=== PATIENT | female | born 1975 | race Caucasian/White ===

== ENCOUNTER 2017-09-08 11:00 | Outpatient (RCR) ==
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
--- NOTE | 2017-08-27 13:37 | RS.OPPTDN ---
Subjective Date of Note: 08/27/17 Visit #: 2 Date of Evaluation: 08/25/17 Payer Source: Insurance Treatment Diagnosis: shld pain, Current Subjective/complaints:: Patient says that heat seems to elevate her neck pain. Reports pain is isolated mostly to the R side of her neck and shoulder blade. She says she feels u/s was helpful at eval. Denies any symptoms to the R UE. *Precautions: n/a Pain Assessment - Pain Description Pain Location: "moderate" "tight" - Treatment Modality: Ultrasound Parameters/Method Applied: continuous @ 1.5 w/cm2 x 12 mins to R UT and 12 mins to the medial border and inferior border of the R scapula Patient Position: Sitting Interventions - Exercise/Activities/Manual Therapy Exercises/Activities: Reviewed home stretches and postural techniques Manual Therapy: DTM and trigger point work to the entire R UT and scapular region. Focus to the R UT and along the medial border x 22 mins HOME EXERCISE PROGRAM: pt given written HEP including cervical ROM, upper trap, levator stretch, scapular retraction and shld shrugs. - Charges Timed Code Treatment Minutes: 46 Total Treatment Time: 46 Procedures billed for this date of service:: us x 2, MT Assessment: Patient presents with moderate pain level and muscle guarding throughout the R UT/scapula. She finds relief with u/s and MT, although she does have spasms and tenderness during moderate palpation with MT. Pain increases with superficial heat she recalls, but expresses improvement following treatment today. Several trigger points are found in this area. No production of pain/tingling/numbness to the R UE with any treatment. Patient was encouraged to perform several postural techniques and exercises to improve symptoms. Patient Education: Body/Joint mechanics, Home Exercise Program Patient demonstrates compliance with HEP?: Yes Short Term Goals Goal #1: pt report decreased pain < 4/10 with activity Goal to be met by: 09/08/17 Goal #2: pt with decreased muscle tightness R upper trap/levator scapula Goal to be met by: 09/08/17 Goal #3: pt independent with initial HEP Goal to be met by: 09/08/17 [facility] Goals Goal #1: Cervical ROM WFL's Goal to be met by: 09/25/17 Goal #2: pt report decreased pain in cervical/scapular region <2/10 Goal to be met by: 09/25/17 Goal #3: pt with RUE strength 4+/5 Goal to be met by: 09/25/17 Goal #4: pt report able to perform normal daily activities with no pain Goal to be met by: 09/25/17 Plan PLAN OF CARE EXPIRES ON:: 09/25/17 ORDER # VISITS AND/OR THROUGH DATE: 09/25/17 PLAN: Patient to continue for modalties, MT, and therex to improve neck pain, mobility, and posture.
--- NOTE | 2017-08-28 13:28 | RS.OPPTDN ---
Subjective Date of Note: 08/28/17 Visit #: 3 Date of Evaluation: 08/25/17 Payer Source: Insurance Treatment Diagnosis: shld pain, Current Subjective/complaints:: Patient says she felt good after her last session, but did forget to take her muscle relaxer at bedtime. She says she is a little more sore this morning as a result. States she is tight pointing at the R inferior border of scapula indicating she has "knots" there. *Precautions: n/a - Treatment Modality: Ultrasound Parameters/Method Applied: continuous @ 1.5 w/cm2 x 12 mins to R UT and 12 mins to the medial and inferior border of scapula Patient Position: Sitting Interventions - Exercise/Activities/Manual Therapy Exercises/Activities: Reviewed home stretches and postural techniques Manual Therapy: DTM and trigger point work to the entire R UT and scapular region. Focus to the R UT and along the medial border x 22 mins HOME EXERCISE PROGRAM: pt given written HEP including cervical ROM, upper trap, levator stretch, scapular retraction and shld shrugs. - Charges Timed Code Treatment Minutes: 46 Total Treatment Time: 46 Procedures billed for this date of service:: us x 2, MT Assessment: Patient with increased muscle guarding to the L UT and throughout the R scapula compared to last session. She has admitted to forgetting muscle relaxer, so this could be partially why she had elevated symptoms. She does also demo several small trigger points along the medial border and inferior border. Patient Education: Home Exercise Program, Education of Plan of Care Patient demonstrates compliance with HEP?: Yes Short Term Goals Goal #1: pt report decreased pain < 4/10 with activity Goal to be met by: 09/08/17 Goal #2: pt with decreased muscle tightness R upper trap/levator scapula Goal to be met by: 09/08/17 Goal #3: pt independent with initial HEP Goal to be met by: 09/08/17 [facility] Goals Goal #1: Cervical ROM WFL's Goal to be met by: 09/25/17 Goal #2: pt report decreased pain in cervical/scapular region <2/10 Goal to be met by: 09/25/17 Goal #3: pt with RUE strength 4+/5 Goal to be met by: 09/25/17 Goal #4: pt report able to perform normal daily activities with no pain Goal to be met by: 09/25/17 Plan PLAN OF CARE EXPIRES ON:: 09/25/17 ORDER # VISITS AND/OR THROUGH DATE: 09/25/17 PLAN: Patient to continue 2-3 times per week for modalities, MT, and therex.
--- NOTE | 2017-09-01 16:19 | RS.OPPTDN ---
Subjective Date of Note: 09/01/17 Visit #: 4 Date of Evaluation: 08/25/17 Payer Source: Insurance Treatment Diagnosis: shld pain, Current Subjective/complaints:: Patient says she feels therapy is helping. She reports less R scapular pain and tightness. She is working on stretches at home and has ordered and received an ice pack similar to our gel packs, which she is using often. *Precautions: n/a Pain Assessment - Pain Description Pain Location: R mid cspine paraspinals and scapula (mostly medial and inferior border) - Treatment Modality: Ultrasound Parameters/Method Applied: continuous @ 1.5 x 12 mins each to the R UT (along the mid cervical paraspinals ) and R inferior and medial border of scapula. Patient Position: Sitting Interventions - Exercise/Activities/Manual Therapy Exercises/Activities: Reviewed home stretches and postural techniques Manual Therapy: DTM and trigger point work to the entire R UT and scapular region. Focus to the R UT and along the medial border x 22 mins HOME EXERCISE PROGRAM: pt given written HEP including cervical ROM, upper trap, levator stretch, scapular retraction and shld shrugs. - Charges Timed Code Treatment Minutes: 46 Total Treatment Time: 46 Procedures billed for this date of service:: us x 2, MT Assessment: Patient admits improved flexibility and pain to the R scapula and UT. She still has difficulty with prolonged neck extension, but is able to perform it intermittently. Patient Education: Education of diagnosis, Home Exercise Program Patient demonstrates compliance with HEP?: Yes Short Term Goals Goal #1: pt report decreased pain < 4/10 with activity Goal to be met by: 09/08/17 Progress towards Goal:: Progressing Goal #2: pt with decreased muscle tightness R upper trap/levator scapula Goal to be met by: 09/08/17 Progress towards Goal:: Progressing Goal #3: pt independent with initial HEP Goal to be met by: 09/08/17 Progress towards Goal:: Progressing Half-Way Goals Goal #1: Cervical ROM WFL's Goal to be met by: 09/25/17 Goal #2: pt report decreased pain in cervical/scapular region <2/10 Goal to be met by: 09/25/17 Goal #3: pt with RUE strength 4+/5 Goal to be met by: 09/25/17 Goal #4: pt report able to perform normal daily activities with no pain Goal to be met by: 09/25/17 Plan PLAN OF CARE EXPIRES ON:: 09/25/17 ORDER # VISITS AND/OR THROUGH DATE: 09/25/17 PLAN: Patient to continue modalities and MT, progressing therex
--- NOTE | 2017-09-03 12:04 | RS.OPPTDN ---
Subjective Date of Note: 09/03/17 Visit #: 5 Date of Evaluation: 08/25/17 Payer Source: Insurance Treatment Diagnosis: shld pain, Current Subjective/complaints:: Patient says she can tell she has less tightness to her neck, but is more tender at the "top of her neck instead of the shoulder blade" today. She points to the R of the C4-C7 area. She says she has had less tenderness to this region and has been using cold pack that she ordered similar to ours. *Precautions: n/a Pain Assessment - Pain Description Pain Location: R C4-C7 paraspinals and tenderness to the R inferior scap and along the lateral border - Treatment Modality: Ultrasound Parameters/Method Applied: continuous @ 1.5 w/cm2 x 12 mins each to the R UT and along the medial/lateral and inferior border Patient Position: Sitting - Heat/Cryotherapy Treatment: Cryotherapy (over the R scap and UT in sitting after MT x 15) Interventions - Exercise/Activities/Manual Therapy Exercises/Activities: Reviewed home stretches and postural techniques Manual Therapy: DTM and trigger point work to the entire R UT and scapular region. Focus to the R UT and along the mid cervical x 22 mins HOME EXERCISE PROGRAM: pt given written HEP including cervical ROM, upper trap, levator stretch, scapular retraction and shld shrugs. - Charges Timed Code Treatment Minutes: 46 Total Treatment Time: 61 Procedures billed for this date of service:: cp, Usx2, MT Assessment: Patient demo decreased tenderness to the R inferior border of the scapula noting some increase in soreness to the the R C4-C7 paraspinals, however , this is greatly eased with cryotherapy and MT. Patient Education: Education of diagnosis, Body/Joint mechanics Patient demonstrates compliance with HEP?: Yes Short Term Goals Goal #1: pt report decreased pain < 4/10 with activity Goal to be met by: 09/08/17 Progress towards Goal:: Progressing Goal #2: pt with decreased muscle tightness R upper trap/levator scapula Goal to be met by: 09/08/17 Progress towards Goal:: Progressing Goal #3: pt independent with initial HEP Goal to be met by: 09/08/17 Progress towards Goal:: Progressing Longterm Goals Goal #1: Cervical ROM WFL's Goal to be met by: 09/25/17 Goal #2: pt report decreased pain in cervical/scapular region <2/10 Goal to be met by: 09/25/17 Goal #3: pt with RUE strength 4+/5 Goal to be met by: 09/25/17 Goal #4: pt report able to perform normal daily activities with no pain Goal to be met by: 09/25/17 Plan PLAN OF CARE EXPIRES ON:: 09/25/17 ORDER # VISITS AND/OR THROUGH DATE: 09/25/17 PLAN: Continue x 1-2 more weeks per order
--- NOTE | 2017-09-08 12:04 | RS.OPPTDN ---
Subjective Date of Note: 09/08/17 Visit #: 6 Date of Evaluation: 08/25/17 Payer Source: Insurance Treatment Diagnosis: shld pain, Current Subjective/complaints:: Patient says the lower portion of her shoulder blade is much better. She says her main problem now is her neck. She says her shoulder motion is fine. States that turning her head to the L is still hard at times. *Precautions: n/a - Treatment Modality: Ultrasound Parameters/Method Applied: continuous @ 1.5 w/cm2 x 12 mins each location. R UT and medial/inferior scapular border. Patient Position: Sitting Interventions - Exercise/Activities/Manual Therapy Exercises/Activities: PROM to the R shoulder in all directions and manual isometrics all dir (IR/ER/FLEX/ABD). Isometrics for cervical retraction, SB L and R. Reviewed home stretches and postural techniques Total minutes of Exercise: 10 Manual Therapy: DTM and trigger point work to the entire R UT and scapular region. Focus to the R UT and along the mid cervical x 22 mins HOME EXERCISE PROGRAM: pt given written HEP including cervical ROM, upper trap, levator stretch, scapular retraction and shld shrugs. - Charges Timed Code Treatment Minutes: 72 Total Treatment Time: 72 Procedures billed for this date of service:: usx2, MT, EX Assessment: Patient demo R Active shoulder ROM WNL. All cspine ROM WNL with exception of L rotation to WFL. Decreased muscle guarding and pain to the R inferior scap and now mainly isolated to the R UT. Patient Education: Body/Joint mechanics, Home Exercise Program Patient demonstrates compliance with HEP?: Yes Short Term Goals Goal #1: pt report decreased pain < 4/10 with activity Goal to be met by: 09/08/17 Progress towards Goal:: Progressing Goal #2: pt with decreased muscle tightness R upper trap/levator scapula Goal to be met by: 09/08/17 Progress towards Goal:: Progressing Goal #3: pt independent with initial HEP Goal to be met by: 09/08/17 Progress towards Goal:: Progressing [facility] Goals Goal #1: Cervical ROM WFL's Goal to be met by: 09/25/17 Progress towards goal: Progressing Goal #2: pt report decreased pain in cervical/scapular region <2/10 Goal to be met by: 09/25/17 Progress towards goal: Progressing Goal #3: pt with RUE strength 4+/5 Goal to be met by: 09/25/17 Progress towards goal: Progressing Goal #4: pt report able to perform normal daily activities with no pain Goal to be met by: 09/25/17 Progress towards goal: Progressing Plan PLAN OF CARE EXPIRES ON:: 09/25/17 ORDER # VISITS AND/OR THROUGH DATE: 09/25/17 PLAN: Continue and progress therex to the R UE for improved strength according to goals x 2 more weeks.
== END 2017-09-08 23:59 ==
PROVIDERS: ATTEND Family Medicine
DX: M25.511 Pain in right shoulder (principal); G89.29 Other chronic pain; M54.2 Cervicalgia; M62.89 Other specified disorders of muscle; M62.81 Muscle weakness (generalized)

== ENCOUNTER 2017-09-24 15:30 | Outpatient (RCR) ==
--- NOTE | 2017-09-10 15:06 | RS.OPPTDN ---
Subjective Date of Note: 09/10/17 Visit #: 7 Date of Evaluation: 08/25/17 Payer Source: Insurance Treatment Diagnosis: shld pain, Current Subjective/complaints:: Patient says she has continued improvement with decreased muscle guarding and improved shoulder motion. *Precautions: n/a - Treatment Modality: Ultrasound Parameters/Method Applied: continuous @ 1.6 w/cm2 x 12 mins each R UT and subscapular region Patient Position: Sitting Interventions - Exercise/Activities/Manual Therapy Exercises/Activities: PROM to the R shoulder in all directions and manual isometrics all dir (IR/ER/FLEX/ABD). Isometrics for cervical retraction, SB L and R. Reviewed home stretches and postural techniques Manual Therapy: DTM and trigger point work to the entire R UT and scapular region. Focus to the R UT and along the mid cervical x 22 mins Total minutes of Manual Therapy: 22 HOME EXERCISE PROGRAM: pt given written HEP including cervical ROM, upper trap, levator stretch, scapular retraction and shld shrugs. - Charges Timed Code Treatment Minutes: 46 Total Treatment Time: 46 Procedures billed for this date of service:: u/s x 2, MT Patient Education: Body/Joint mechanics, Education of Plan of Care Patient demonstrates compliance with HEP?: Yes Short Term Goals Goal #1: pt report decreased pain < 4/10 with activity Goal to be met by: 09/08/17 Progress towards Goal:: Met Goal #2: pt with decreased muscle tightness R upper trap/levator scapula Goal to be met by: 09/08/17 Progress towards Goal:: Met Goal #3: pt independent with initial HEP Goal to be met by: 09/08/17 Progress towards Goal:: Met E/M Engineer Goals Goal #1: Cervical ROM WFL's Goal to be met by: 09/25/17 Progress towards goal: Progressing Goal #2: pt report decreased pain in cervical/scapular region <2/10 Goal to be met by: 09/25/17 Progress towards goal: Progressing Goal #3: pt with RUE strength 4+/5 Goal to be met by: 09/25/17 Progress towards goal: Progressing Goal #4: pt report able to perform normal daily activities with no pain Goal to be met by: 09/25/17 Progress towards goal: Progressing Plan PLAN OF CARE EXPIRES ON:: 08/17/18 ORDER # VISITS AND/OR THROUGH DATE: 09/25/17 PLAN: Patient to continue x 1 more session. Patient says her MD verbalized her to continue therapy since it has been effective. Will obtain order for x 2 more weeks to focus on scapular and R shoulder strength as muscle guarding has improved.
--- NOTE | 2017-09-14 14:41 | RS.OPPTDN ---
Subjective Date of Note: 09/14/17 Visit #: 8 Date of Evaluation: 08/25/17 Payer Source: Insurance Treatment Diagnosis: shld pain, Current Subjective/complaints:: Patient says her area of pain is significantly less now. She says she has pain and tightness that is milder at the R UT. Patient reports decreased R shoulder pain and improved ROM. States she is performing more housework with less difficulty, but is also cautious about more difficult yard working tasks. *Precautions: n/a Pain Assessment - Pain Description Pain Location: milder Pain Description: Tightness - Treatment Modality: Ultrasound Parameters/Method Applied: continuous @ 1.6 w/cm2 x 12 mins locally at the R UT (midline and running distally) Patient Position: Sitting Interventions - Exercise/Activities/Manual Therapy Exercises/Activities: PROM to the R shoulder in all directions and manual isometrics all dir (IR/ER/FLEX/ABD). Isometrics for cervical retraction, SB L and R. 2# wand for bilateral shoulder flexion to shoulder height x 10, scap retraction with red tband x 10. Reviewed home stretches and postural techniques Total minutes of Exercise: 12 Manual Therapy: DTM and trigger point work . Focus to a small area at the mid R UT and along the mid cervical x 16 mins HOME EXERCISE PROGRAM: pt given written HEP including cervical ROM, upper trap, levator stretch, scapular retraction and shld shrugs. - Objective Findings Observations,measurements,etc.: Patient completes UE Functional Index scorin/80 or 8% impairment (EVAL: 68/80 or 15% impairment) - Charges Timed Code Treatment Minutes: 40 Total Treatment Time: 40 Procedures billed for this date of service:: u/s, MT, EX Assessment: Patient demo 4+/5 MMT grossly throughout the R UE, however, some functional tasks remain difficult due to moderate muscle guarding and trigger points located into the mid R UT region. These trigger points have reduced in size and tone in general has significantly localized to a much smaller area. She may benefit from continuing her last 4 sessions per order to focus on the R UE. Patient Education: Body/Joint mechanics, Home Exercise Program, Activity Modification Short Term Goals Goal #1: pt report decreased pain < 4/10 with activity Goal to be met by: 09/08/17 Progress towards Goal:: Met Goal #2: pt with decreased muscle tightness R upper trap/levator scapula Goal to be met by: 09/08/17 Progress towards Goal:: Met Goal #3: pt independent with initial HEP Goal to be met by: 09/08/17 Progress towards Goal:: Met Detention Goals Goal #1: Cervical ROM WFL's Goal to be met by: 09/25/17 Progress towards goal: Progressing Goal #2: pt report decreased pain in cervical/scapular region <2/10 Goal to be met by: 09/25/17 Progress towards goal: Progressing Goal #3: pt with RUE strength 4+/5 Goal to be met by: 09/25/17 Progress towards goal: Progressing Goal #4: pt report able to perform normal daily activities with no pain Goal to be met by: 09/25/17 Progress towards goal: Progressing Plan PLAN OF CARE EXPIRES ON:: 09/25/17 ORDER # VISITS AND/OR THROUGH DATE: 09/25/17 PLAN: Patient to continue for MT/EX to focus on the R UE
--- NOTE | 2017-09-17 16:34 | RS.OPPTDN ---
Subjective Date of Note: 09/17/17 Visit #: 9 Date of Evaluation: 08/25/17 Payer Source: Insurance Treatment Diagnosis: shld pain, Current Subjective/complaints:: Patient says her shoulder pain and tightness seems to be improving, but can tell that she needs to work on her strength. She says she has intermittent popping in the R shoulder and does have pain relief once it pops. *Precautions: n/a Pain Assessment - Pain Description Pain Location: R shoulder and tight at the R side of her neck - Treatment Modality: Ultrasound Parameters/Method Applied: continuous @ 1.5 w/cm2 x 10 mins to the R shoulder joint Patient Position: Sitting Interventions - Exercise/Activities/Manual Therapy Exercises/Activities: PROM to the R shoulder in all directions and manual isometrics all dir (IR/ER/FLEX/ABD) in supine 2x5. 1# for punches, biceps curls and R shoulder flexion x 15. Isometrics for cervical retraction, SB L and R. Increased to 3# wand for bilateral shoulder flexion to ~150 degrees and chest presses 2 x 10, Horizontal abd bilaterally with green tband x 10, bilateral shoulder ER with green tband x 10, scap retraction using wand green tband x 10. Total minutes of Exercise: 25 Manual Therapy: DTM and trigger point work . Focus to a small area at the mid R UT and along the mid cervical x 16 mins HOME EXERCISE PROGRAM: pt given written HEP including cervical ROM, upper trap, levator stretch, scapular retraction and shld shrugs. - Charges Timed Code Treatment Minutes: 35 Total Treatment Time: 50 Procedures billed for this date of service:: u/s, ex2 Assessment: Patient demo PROM WNL, AROM, WFL with limitations only with flex/ abd. She demo intermittent popping throughout the R shoulder joint with all motions. 5/5 strength with all motions except flexion 4+/5, but weak with scapular motions and against gravity with arms above shoulder height. She will progress with advancing therex to strengthen the shoulder x 3 more visits per order. D/c then with progressive tbands for home. Patient Education: Home Exercise Program, Education of Plan of Care Patient demonstrates compliance with HEP?: Yes Short Term Goals Goal #1: pt report decreased pain < 4/10 with activity Goal to be met by: 09/08/17 Progress towards Goal:: Met Goal #2: pt with decreased muscle tightness R upper trap/levator scapula Goal to be met by: 09/08/17 Progress towards Goal:: Met Goal #3: pt independent with initial HEP Goal to be met by: 09/08/17 Progress towards Goal:: Met Usp Goals Goal #1: Cervical ROM WFL's Goal to be met by: 09/25/17 Progress towards goal: Partially Met Goal #2: pt report decreased pain in cervical/scapular region <2/10 Goal to be met by: 09/25/17 Progress towards goal: Progressing Goal #3: pt with RUE strength 4+/5 Goal to be met by: 09/25/17 Progress towards goal: Progressing Goal #4: pt report able to perform normal daily activities with no pain Goal to be met by: 09/25/17 Progress towards goal: Progressing Plan PLAN OF CARE EXPIRES ON:: 09/25/17 ORDER # VISITS AND/OR THROUGH DATE: 09/25/17 PLAN: Continue x 3 more sessions, then plan for D/c.
--- NOTE | 2017-09-22 16:41 | RS.OPPTDN ---
Subjective Date of Note: 09/21/17 Visit #: 10 Date of Evaluation: 08/25/17 Payer Source: Insurance Treatment Diagnosis: shld pain, Current Subjective/complaints:: Patient says she was sitting in a 2 hour meeting today and had the R arm positioned where she was propped up for an extended amount of town and is more sore and fatigued in the R shoulder. She c/ o pain that extends up to the R UT and base of the neck. *Precautions: n/a Pain Assessment - Pain Description Pain Location: elevated and tight to the R shoulder up to the R UT/base of neck - Treatment Modality: Ultrasound Parameters/Method Applied: continuous @ 1.5 w/cm2 x 10 mins to the R shoulder and R UT Patient Position: Sitting Interventions - Exercise/Activities/Manual Therapy Exercises/Activities: PROM to the R shoulder in all directions and manual isometrics all dir (IR/ER/FLEX/ABD) in supine 2x5. 2# wand for bilateral shoulder flexion and chest presses x 10 supine. 1# for punches, biceps curls and R shoulder flexion x 15. Green tband for scap retraction in sitting x 10, 1# wand for bilateral shoulder flexion in sitting x 10. Total minutes of Exercise: 28 Manual Therapy: na HOME EXERCISE PROGRAM: pt given written HEP including cervical ROM, upper trap, levator stretch, scapular retraction and shld shrugs. - Objective Findings Observations,measurements,etc.: 72/80 for UE Functional Index or 10% impairment - Charges Timed Code Treatment Minutes: 38 Total Treatment Time: 38 Procedures billed for this date of service:: u/s, Assessment: Patient with elevated pain today due to prolonged positioning of the R shoulder. As a result, she had pain and muscle tightness that extended to the R UT and base of skull. With u/s, this decreased, but we were a little more conservative with exercise. Patient had 4 point improvement for UE Functional Index today showing 10% impairment versus 15% at [facility]. 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 Then plan to D/c.
--- NOTE | 2017-09-24 16:40 | RS.OPPTDN ---
Subjective Date of Note: 09/24/17 Visit #: 11 Date of Evaluation: 08/25/17 Payer Source: Insurance Treatment Diagnosis: shld pain, Current Subjective/complaints:: Patient says her shoulder is feeling much better. Reports she only has mild soreness at the R side of her neck (pointing to mid-section of the RUT). *Precautions: n/a - Treatment Modality: Ultrasound Parameters/Method Applied: continuous @ 1.6 w/cm2 x 12 mins to the R shoulder and R UT along the mid belly Patient Position: Sitting Interventions - Exercise/Activities/Manual Therapy Exercises/Activities: Progressive therex in sittin# wand for bilateral shoulder flexion x 15, Green tband for scap retraction, R shoulder extension, x 15. 1# dumbell for R shoulder flexion, abd, and horizontal add diagonal x 10. 2# dumbell for biceps, triceps, and punches x 10. Total minutes of Exercise: 25 Manual Therapy: na HOME EXERCISE PROGRAM: pt given written HEP including cervical ROM, upper trap, levator stretch, scapular retraction and shld shrugs. - Charges Timed Code Treatment Minutes: 37 Total Treatment Time: 37 Procedures billed for this date of service:: u/s, ex2 Assessment: Patient able to progress with strengthening exercises demo improved AROM to the R shoulder to WNL and improved R sided neck and scapular pain. Pain isolated now to the R UT at the muscle belly. She is able to return to performing all ADLs with minimal intermittent fatigue/soreness. She is compliant with all HEP. 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 Goal #1: Cervical ROM WFL's Goal to be met by: 09/25/17 Progress towards goal: Partially Met Goal #2: pt report decreased pain in cervical/scapular region <2/10 Goal to be met by: 09/25/17 Progress towards goal: Met Goal #3: pt with RUE strength 4+/5 Goal to be met by: 09/25/17 Progress towards goal: Met Goal #4: pt report able to perform normal daily activities with no pain Goal to be met by: 09/25/17 Progress towards goal: Partially Met (significantly less pain, reduced to tolerable level at this point.) Plan PLAN OF CARE EXPIRES ON:: 09/25/17 ORDER # VISITS AND/OR THROUGH DATE: 09/25/17 PLAN: Plan to d/c
== END 2017-10-09 23:59 ==
PROVIDERS: ATTEND Family Medicine
DX: M25.511 Pain in right shoulder (principal); M54.2 Cervicalgia; M62.89 Other specified disorders of muscle; M62.81 Muscle weakness (generalized)

== ENCOUNTER 2018-03-11 15:30 | Outpatient (RCR) ==
--- NOTE | 2018-02-26 09:14 | RS.OPPTEV2 ---
Date of Note: 02/25/18 Visit #: 1 Number of visits approved by Insurance: pending Date of Evaluation: 02/25/18 Payer Source: Insurance Surgery Performed?: No Treatment Diagnosis: L foot pain, plantar fasciitis, heel spur History of Condition/Mechanism of Injury:: pt reports pain began 10/21/17 and was later seen by cone operator and placed in walking boot for 6 weeks. She also received an injection. Prior Level of Function.....Patient was independent with: ADL's, Self Care, Work /Vocation, Caregiving, Ambulation/Mobility, Community Integration/Access Functional Limitations: Standing, Ambulation, Community Access/Integration Current Subjective/complaints:: pt reports she got new inserts that Dr. Almaguer recommended and wore them all day yesterday. pt somewhat sore today. pt showed PT her xray showing bone spur on L heel. Treatment Side (optional): Left *Precautions: n/a Medical History Medical History: Hypertension, Diabetes, Arthritis Medical History Comments:: DDD Surgical History: Cholecystectomy, Tonsillectomy Smoking Status: Never smoker Hx Home Medications: lantus, humalog, zestril, prozac, lipitor, HTCZ, anglaza glucophage, orglyza, orthocept, novalog Patient's Goals: decreased L heel pain Pain Assessment - Pain Description Pain Location: L heel Pain Description: Aching Current Pain Intensity: 2/10 Functional Outcome Measure LE Functional Scale: 47 - G Codes & Severity Modifier G Codes & Modifier: n/a Source of G Code score: n/a Observation - Observation Inspection: pt presents with tightness in B heel cord L worse than R. Posture: Forward Head, Rounded Shoulders Handedness: Right Gait - Gait Pattern Gait Comments: pt amb with B foot pronation with slight genu valgus B knees. General Range of Motion: BUE WFL's. BLE WFL's, L ankle limited. Muscle Strength: BUE 5/5. BLE hip flex 5/5, knee flex/ext 5/5, R ankle DF/PF 5/ 5 Ankle ROM: Right WFL's Ankle Muscle Strength: Right WFL's - Left Ankle ROM Left DF with Knee extension: -8 AROM, Comments: L ankle DF AAROM neutral, otherwise L ankle ROM WFL's with pain with ROM. - Left Ankle Strength Left Dorsiflexion: 3 Fair Left Plantar flexion: 4- Good- Left Eversion: 4- Good- Left Inversion: 3+ Fair+ Palpation Palpation Findings: Tenderness Comments:: tenderness to palpation noted in L medial heel Sensation - Sensation Right Upper Extremity: Intact/Normal Left Upper Extremity: Intact/Normal Right Lower Extremity: Intact/Normal Left Lower Extremity: Intact/Normal Balance - Sitting Balance Static Sitting Balance: Normal Dynamic Sitting Balance: Normal - Standing Balance Static Standing Balance: Normal Dynamic Standing Balance: Normal - Treatment Modality: Ultrasound Parameters/Method Applied: pulsed 1.4w/cm2 x 7 mins Treatment Area: L medial heel Patient Position: Supine Interventions - Exercise/Activities/Manual Therapy Exercises/Activities: pt performed isometric ankle DF/PF, inversion/eversion, DF /PF with green theraband, standing heel cord stretch. Manual Therapy: na HOME EXERCISE PROGRAM: pt given written HEP including standing heel cord stretch , isometric DF, PF, IV, EV, green theraband DF/PF - Charges Timed Code Treatment Minutes: 52 Total Treatment Time: 61 Procedures billed for this date of service:: eval low, ultrasound EVALUATION COMPLEXITY LEVEL EVALUATION COMPLEXITY LEVEL: HISTORY: Low (DM, HTN), EXAM OF BODY SYSTEMS: Low ( ROM, pain, strength,), CLINICAL PRESENTATION: Low, CLINICAL DECISION MAKING: Low Assessment Assessment: pt presents with pain L medial heel, decreased strength L ankle due to plantar fasciitis, bone spur s/p wearing boot x 6 weeks. Feel pt would benefit from skilled PT for modalities to decreased inflammation and pain as well as strengthening and stretching ex to improve function. 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 Plan - Treatment to be Provided Procedures: Therapeutic Exercises, Therapeutic Activity, Manual Therapy, Massage , Patient Education Modalities: Electrical Stimulation, Ultrasound/Phonophoresis, Class IV Laser, Cryotherapy, Hot Packs - Treatment Plan Frequency: 2-3x a week Duration: 4 weeks Dates of Dispatch Machine Runner Goals: 03/25/18 Expiration date of current Insurance Approval:: pending - Treatment Code (1) Left foot pain Code(s): M79.672 - PAIN IN LEFT FOOT (2) Plantar fasciitis of left foot Code(s): M72.2 - PLANTAR FASCIAL FIBROMATOSIS (3) Muscle tightness Code(s): M62.89 - OTHER SPECIFIED DISORDERS OF MUSCLE (4) Muscle weakness Code(s): M62.81 - MUSCLE WEAKNESS (GENERALIZED)
--- NOTE | 2018-03-02 16:23 | RS.OPPTDN ---
Subjective Date of Note: 03/02/18 Visit #: 2 Number of visits approved by Insurance: 2-3x4 Date of Evaluation: 02/25/18 Payer Source: Insurance Treatment Diagnosis: L foot pain, plantar fasciitis, heel spur Current Subjective/complaints:: Patient says she is feeling much better since having her boot removed. She says she has had some "muscle soreness" from compensation and the weight of the boot itself. She asks when she could return to walking 2 miles. *Precautions: n/a - Treatment Modality: Ultrasound Parameters/Method Applied: Pulsed @ 20% 1.4 w/cm2 x 12 mins to the L heel and focused medially Patient Position: Supine - Heat/Cryotherapy Treatment: Cryotherapy (ice massage to the L heel and focused medially x 4-5 mins after therex) Interventions - Exercise/Activities/Manual Therapy Exercises/Activities: Patient receives passive heel cord stretching and great toe stretch. Began manual isometrics for all directions 2x5. Reviewed HEP and began education on diagnosis/POC. Encouraged her to consult her ortho about returning to prolonged amb, encouraging her to return slowly. Total minutes of Exercise: 16 Manual Therapy: na HOME EXERCISE PROGRAM: pt given written HEP including standing heel cord stretch , isometric DF, PF, IV, EV, green theraband DF/PF - Charges Timed Code Treatment Minutes: 32 Total Treatment Time: 37 Procedures billed for this date of service:: cp, u/s, ex Assessment: Patient appears to be responding so far to treatment as she is having less tenderness, improved ambulation and overall pain. She has begun HEP and is anxious to return to exercising and amb to goal of 2 miles daily as she had prior to the injury. 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 Plan Dates of Training And Development Manager Goals: 03/25/18 Expiration date of current Insurance Approval:: 03/25/18 PLAN: Patient to continue for modalities and therex to the L ankle to improve gait tolerance.
--- NOTE | 2018-03-04 16:19 | RS.OPPTDN ---
Subjective Date of Note: 03/04/18 Visit #: 3 Number of visits approved by Insurance: 2-3x4 Date of Evaluation: 02/25/18 Payer Source: Insurance Treatment Diagnosis: L foot pain, plantar fasciitis, heel spur Current Subjective/complaints:: Patient says soreness is better and she is able to walk better applying more WBing. She says she has not been able to perform stretches today at work because she has been busier and did not have time. She does state ice massage relieved pain for "a long time." *Precautions: n/a - Treatment Modality: Ultrasound Parameters/Method Applied: Pulsed @ 20% @ 1.4 w/cm2 x 12 mins to the L heel and arch focusing on medial heel aspect Patient Position: Supine - Heat/Cryotherapy Treatment: Cryotherapy (ice massage x 4-5 mins to the L heel concentrating medially after therex) Interventions - Exercise/Activities/Manual Therapy Exercises/Activities: Patient receives passive heel cord stretching and great toe stretch. Continued with manual isometrics for all directions 2x5. Received HS stretching to the L. Continued with HeP review and encouraged ice massage at home or rolling on frozen water bottle for pain relief. Total minutes of Exercise: 12 Manual Therapy: na HOME EXERCISE PROGRAM: pt given written HEP including standing heel cord stretch , isometric DF, PF, IV, EV, green theraband DF/PF - Charges Timed Code Treatment Minutes: 29 Total Treatment Time: 29 Procedures billed for this date of service:: cp, u/s, ex Assessment: Patient experiencing improved pain level to the L foot with increased ability to WB and ambulate. She is pretty consistent with her HEP, just omitted today due to being busy at work. She finds relief with cryotherapy and did encourage her to continue using this form at home. She is able to provide good resistance with all isometrics without causing any c/o's. 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 Plan Dates of Intermediate Goals: 03/25/18 Expiration date of current Insurance Approval:: 03/25/18 PLAN: Continue with modalities and therex to the L foot/ankle to provide stability and pain relief.
--- NOTE | 2018-03-09 10:48 | RS.CXNS ---
Date of scheduled appointment: 03/08/18 Type: No Show
--- NOTE | 2018-03-11 16:31 | RS.OPPTDN ---
Subjective Date of Note: 03/11/18 Visit #: 3 Number of visits approved by Insurance: [id number] Date of Evaluation: 02/25/18 Payer Source: Insurance Treatment Diagnosis: L foot pain, plantar fasciitis, heel spur Current Subjective/complaints:: Patient says her foot is feeling better. Reports she is wearing her insert and appears to be helping now. She says she had to remove it the other day because it was hurting. She says she has no "pain" right now, but just feels "different." *Precautions: n/a - Treatment Modality: Ultrasound Parameters/Method Applied: continous @ 1.5 w/cm2 x 12 mins to the L heel, lateral and medial arch region Patient Position: Supine - Heat/Cryotherapy Treatment: Cryotherapy (ice massage to the above area x 4 mins after therex) Interventions - Exercise/Activities/Manual Therapy Exercises/Activities: Patient receives passive heel cord stretching and great toe stretch. Continued with manual isometrics for all directions 2x5. Received HS stretching to the L. Continued with HeP review and encouraged ice massage at home or rolling on frozen water bottle for pain relief. 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 She demo good strength in all directions and ROM WFL with demo DF now to neutral. 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 Plan Dates of Asian Studies Program Chair Goals: 03/25/18 Expiration date of current Insurance Approval:: 03/25/18 PLAN: Continue modalities and progressive therex to the L LE
== END 2018-03-11 23:59 ==
PROVIDERS: ATTEND Podiatrist
DX: M72.2 Plantar fascial fibromatosis (principal); M79.672 Pain in left foot

== ENCOUNTER 2018-03-22 15:30 | Outpatient (RCR) ==
--- NOTE | 2018-03-17 16:30 | RS.OPPTDN ---
Subjective Date of Note: 03/17/18 Visit #: 4 Number of visits approved by Insurance: [id number] Date of Evaluation: 02/25/18 Payer Source: Insurance Treatment Diagnosis: L foot pain, plantar fasciitis, heel spur Current Subjective/complaints:: Patient reports her foot only hurts at night. States she has only had soreness at a small donavan sized spot at the medial heel. She says she is using her arch support at all times and does not cause her any discomfort now. *Precautions: n/a - Treatment Modality: Ultrasound Parameters/Method Applied: continuous @ 1.5 w/cm2 x 7 mins to the medial heel then, pulsed @ 0.8 w/cm2 x 4 mins Patient Position: Supine - Heat/Cryotherapy Treatment: Cryotherapy (ice massage to the L medial heel x 4 mins after therex) Interventions - Exercise/Activities/Manual Therapy Exercises/Activities: Patient receives passive heel cord stretching and great toe stretch. Continued with manual isometrics for all directions 2x5. Received HS stretching to the L. Total minutes of Exercise: 8 Manual Therapy: na HOME EXERCISE PROGRAM: pt given written HEP including standing heel cord stretch , isometric DF, PF, IV, EV, green theraband DF/PF - Charges Timed Code Treatment Minutes: 28 Total Treatment Time: 28 Procedures billed for this date of service:: cp, u/s, ex Assessment: Patient experiencing relief of pain to the L heel and using arch support consistently. She is now wearing athletic shoes daily for added support and works on HEP often. She demo good strength to the L ankle in general and demo increased hamstring flexibility. 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 Plan Dates of Residential Goals: 03/25/18 Expiration date of current Insurance Approval:: 03/25/18 PLAN: Patient to continue x 1-2 more weeks progressing therex
--- NOTE | 2018-03-19 14:41 | RS.OPPTDN ---
Subjective Date of Note: 03/18/18 Visit #: 5 Number of visits approved by Insurance: na Date of Evaluation: 02/25/18 Payer Source: Insurance Treatment Diagnosis: L foot pain, plantar fasciitis, heel spur Current Subjective/complaints:: Patient says she is doing much better, acknowledging she does not have pain only irritation that "something is there." She says she is able to feel she is gaining strength as well and that her mobility has improved greatly. *Precautions: n/a - Treatment Modality: Ultrasound Parameters/Method Applied: continous @ 1.5 w/cm2 x 8 mins to the medial arch/ calcaneal region, then pulsed @ 0.8 w/cm2 20% x 4 mins to same location. Patient Position: Supine Interventions - Exercise/Activities/Manual Therapy Exercises/Activities: Patient receives passive heel cord stretching and great toe stretch. Continued with manual isometrics for all directions 2x5. Received HS stretching to the L. Green tband for all motions 2x10 reps. Patient will use ice at home if she needs it. Total minutes of Exercise: 14 Manual Therapy: na HOME EXERCISE PROGRAM: pt given written HEP including standing heel cord stretch , isometric DF, PF, IV, EV, green theraband DF/PF - Charges Timed Code Treatment Minutes: 26 Total Treatment Time: 30 Procedures billed for this date of service:: u/s, ex Assessment: Patient progressing well demo ROM WFL all directions, no pain (only slight "aggravation" at the medial heel), strength 5/5 manually. She has worked with moderate aggressive tband without difficulty. She may advance x 1 more week next week as Caro has discussed with-holding further therapy to not cause her more expense. 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 Plan Dates of Custodial Goals: 03/25/18 Expiration date of current Insurance Approval:: 03/25/18 PLAN: Patient to continue progressing with strength next week.
--- NOTE | 2018-03-22 16:21 | RS.OPPTDN ---
Subjective Date of Note: 03/22/18 Visit #: 5 Number of visits approved by Insurance: [id number] Date of Evaluation: 02/25/18 Payer Source: Insurance Treatment Diagnosis: L foot pain, plantar fasciitis, heel spur Current Subjective/complaints:: Patient says she has had some soreness to the outside of the arch (lateral arch) in which she said she had hurt in this location after she received her injection. She states overall, her pain is much better and she has gained a lot of strength. *Precautions: n/a - Treatment Modality: Ultrasound Parameters/Method Applied: continuous @ 1.5 w/cm2 x 12 mins to the medial heel and lateral arch region Patient Position: Supine Interventions - Exercise/Activities/Manual Therapy Exercises/Activities: Patient receives passive heel cord stretching and great toe stretch. Continued with manual isometrics for all directions 2x5. Received HS stretching to the L. Green tband for all motions 2x10 reps. Standing at railing with blue foam pad and bentley air pad for heel/toe raises, weight shift L to R, forward lunge, minisquats x 10 each. Gave blue tband. Total minutes of Exercise: 22 Manual Therapy: na HOME EXERCISE PROGRAM: pt given written HEP including standing heel cord stretch , isometric DF, PF, IV, EV, green theraband DF/PF - Charges Timed Code Treatment Minutes: 34 Total Treatment Time: 34 Procedures billed for this date of service:: u/s, ex Assessment: Patient progressing well with all therex tbands and standing WBing activitiies demo improved ROM and bal. 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 Plan Dates of [facility] Goals: 03/25/18 Expiration date of current Insurance Approval:: 03/25/18 PLAN: pt to return to MD Thursday. May discontinue if MDagreeable to perform HEP.
== END 2018-04-08 23:59 ==
PROVIDERS: ATTEND Podiatrist
DX: M72.2 Plantar fascial fibromatosis (principal); M79.672 Pain in left foot